=== PATIENT | female | born 1960 | race Caucasian/White ===

== ENCOUNTER 2020-05-04 11:27 | Emergency (ER) | payer OTHER, SELFPAY ==
[2020-05-04 11:40] VITALS: BP 140/68; PULSE 80; RESP 18; TEMP 36.4; O2SAT 96
[2020-05-04 11:50] VITALS: BP 140/68; PULSE 80; RESP 18; TEMP 36.4; O2SAT 96
--- NOTE | 2020-05-04 11:54 | ED.EXTPRO ---
HPI - Extremity Problem General Chief complaint: Extremity Injury, Upper Stated complaint: let arm pain Time Seen by Provider: 05/04/20 11:47 Source: patient and RN notes reviewed Mode of arrival: ambulatory Limitations: no limitations History of Present Illness HPI Narrative: 59-year-old female presents with concern for left shoulder tenderness, pain with range of motion. She denies any injury or trauma. Reports repetitive motion while working at [employer]. Reports pain for several weeks. Denies bruising, swelling. Reports pain and tenderness that started at the shoulder joint, however the shoulder joint is not painful, and radiates long term down the back of the arm. She denies any chest pain, shortness of breath, nausea, back pain, shortness of breath. She reports taking Tylenol. MD Complaint: extremity pain Related Data Home Medications Medication Instructions Recorded Confirmed albuterol sulfate 2 inh INHALATION DAILY 05/04/20 05/04/20 buspirone 10 mg PO DAILY 05/04/20 05/04/20 fluoxetine 10 mg PO DAILY 05/04/20 05/04/20 levothyroxine [Euthyrox] 137 mcg PO DAILY 05/04/20 05/04/20 lorazepam 0.5 mg PO PRN PRN 05/04/20 05/04/20 pantoprazole 40 mg PO DAILY 05/04/20 05/04/20 Allergies Allergy/AdvReac Type Severity Reaction Status Date / Time No Known Allergies Allergy Mild Verified 05/04/20 11:47 Review of Systems Review of Systems: Narrative: CONSTITUTIONAL: Denies malaise, chills, sweats, or fever. CARDIOVASCULAR: Denies chest pain, palpitations, or edema. RESPIRATORY: Denies cough or dyspnea. GASTROINTESTINAL: Denies abdominal pain, nausea, vomiting SKIN: Denies redness, bruising MUSCULOSKELETAL: Reports left shoulder pain, tenderness NEUROLOGIC: Denies numbness, weakness All systems reviewed & are unremarkable except as noted in HPI and below PMFSH Social History Social History Gender identity (if verbalized by the patient): Female Comments At time of signature, agree with nursing past medical, surgical, social and family history. There is no relevant family history pertinent to the presenting complaint Exam Narrative: Exam Narrative: GENERAL: Well-appearing, well-nourished, and in no acute distress. HEAD: Normocephalic, atraumatic. EYES: PERRLA, conjunctivae clear NECK: Supple. CHEST: Speaks in full sentences. No respiratory distress. HEART: Regular rate and rhythm. Normal and equal peripheral pulses. EXTREMITIES: Left shoulder, upper arm has normal strength and sensation, normal range of motion. No edema or ecchymosis. 5/5 strength with shoulder abduction, abduction, flexion and extension. Normal sensation with sensitivity to light touch and pain. Posterior upper arm tenderness, pain reproducible. No open wounds, no skin tenting, no devitalized tissue or atrophy, no trophic changes, no obvious deformity, alignment normal, nearby joints and structures intact. Distal pulses palpable and equal bilaterally, skin warm, dry, pink. Capillary refill less than 3 seconds. SKIN: Warm, dry, no rash. NEURO: Alert and oriented x3. PSYCH: Normal mood and affect Course Course Emergency Course: Patient is aware of diagnosis, understands and agrees to treatment plan. Anticipatory guidance given. Patient agrees to follow-up as directed and is aware of reasons to seek care at the emergency department. Portions of this record may have been created with voice recognition software Vital Signs Vital signs: Vital Signs Temperature 97.5 F L 05/04/20 11:40 Pulse Rate 80 05/04/20 11:40 Respiratory Rate 18 05/04/20 11:40 Blood Pressure 140/68 05/04/20 11:40 Pulse Oximetry 96 05/04/20 11:40 Temperature 97.5 F L 05/04/20 11:50 Pulse Rate 80 05/04/20 11:50 Respiratory Rate 18 05/04/20 11:50 Blood Pressure 140/68 05/04/20 11:50 Pulse Oximetry 96 05/04/20 11:50 Reviewed. MDM - Extremity (Nontraumatic) MDM Narrative Medical decision making narrative: Patients pain is consistent with mus
== END 2020-05-04 12:03 | disposition home or self-care (01) ==
PROVIDERS: Emergency Provider Nurse Practitioner; PCP Physician Assistant
DX: M25.512 Pain in left shoulder (principal); K21.9 Gastro-esophageal reflux disease without esophagitis; E03.9 Hypothyroidism, unspecified; F41.9 Anxiety disorder, unspecified; F32.9 Major depressive disorder, single episode, unspecified
CPT/HCPCS: 99213; G0463

== ENCOUNTER 2024-02-09 17:13 | Emergency (ER) | payer OTHER, SELFPAY ==
--- NOTE | ~2024-02-09 | XR_ITS ---
XR chest 2V Ordering provider: Sedrick Fernandez APRN History: 63 years Female with . difficulty breathing x 1 week smoker . Comparison: None. FINDINGS: MEDIASTINUM: The cardiac silhouette is likely enlarged. Congestive [place]. LUNGS: No infiltrates, effusions or pneumothorax. OTHER: No free air under the diaphragm. IMPRESSION: No acute cardiopulmonary pathology. Slight cardiomegaly with congestive [place]. Reviewed, dictated and finalized at location A.
[2024-02-09 17:21] VITALS: BP 138/80; PULSE 115; RESP 20; TEMP 36.3; O2SAT 95
--- NOTE | 2024-02-09 17:23 | ED.SOB ---
HPI - SOB/Dyspnea General Chief Complaint: Shortness of Breath/Dyspnea Stated Complaint: SOB Time Seen by Provider: 02/09/24 17:25 Source: patient Mode of arrival: ambulatory Limitations: no limitations History of Present Illness HPI Narrative: Candida is a 63-year-old female patient presenting to the clinic today with complaints of shortness of breath over the past week. States that this shortness of breath is gradually getting worse. It is worse to lay flat. She is a current smoker smoking 1 pack per day. No history of asthma or COPD. States that the cough is nonproductive. She denies any fever, chills, body aches. Related Data Home Medications Medication Instructions Recorded Confirmed albuterol sulfate 90 mcg/actuation 2 inh inhalation DAILY 05/04/20 02/09/24 aerosol inhaler buspirone 10 mg tablet 10 mg PO DAILY 05/04/20 02/09/24 fluoxetine 10 mg capsule 10 mg PO DAILY 05/04/20 02/09/24 levothyroxine 137 mcg tablet 137 mcg PO DAILY 05/04/20 02/09/24 (Euthyrox) lorazepam 0.5 mg tablet 0.5 mg PO PRN PRN Anxiety 05/04/20 02/09/24 pantoprazole 40 mg tablet,delayed 40 mg PO DAILY 05/04/20 02/09/24 release Allergies Allergy/AdvReac Type Severity Reaction Status Date / Time No Known Allergies Allergy Mild Verified 02/09/24 17:16 Review of Systems Review of Systems: Pertinent positives per HPI. Patient denies any fever, chills, rash, headache, visual changes, dizziness, runny nose, sore throat, chest pain, palpitations, nausea, vomiting, diarrhea, constipation, abdominal pain, or any urinary issues. [facility] Social History Social History Gender identity (if verbalized by the patient): Female Comments At the time of my signature, I reviewed and agree with the nursing past medical, surgical, social, and family history. There is no relevant family history pertinent to the patient complaint. Exam Narrative: General: Well-developed, obese, in no apparent distress Head: Normocephalic, atraumatic Eyes: Pupils equally round and reactive to light bilaterally, EOM intact, sclera and conjunctive clear, no discharge, lids normal Ears: TMs intact and clear, ear canals clear, no drainage, grossly hearing normal. Nose: Nares patent, no discharge, no inflammation, no sinus tenderness. Mouth: Oropharynx without lesions or masses, good dentition, MMM. Neck: Supple, trachea midline, no enlargement of anterior or posterior cervical nodes, no thyroid masses or goiter palpable. Cardio: Regular rate and rhythm, s1 and s2 normal, no murmur appreciated. Resp: Wheezing and diminished throughout lung [place], no rhonchi, rales,or rubs. Course Course Emergency Course: Portions of this record may have been created with voice recognition software. Level of Care: Express Care Visit Vital Signs Vital signs: Vital Signs Temperature 36.3 C L 02/09/24 17:21 Pulse Rate 115 H 02/09/24 17:21 Respiratory Rate 20 02/09/24 17:21 Blood Pressure 138/80 02/09/24 17:21 Pulse Oximetry 95 02/09/24 17:21 Oxygen Delivery Room Air 02/09/24 17:21 Temperature 36.3 C L 02/09/24 17:21 Pulse Rate 115 H 02/09/24 17:21 Respiratory Rate 20 02/09/24 17:21 Blood Pressure 138/80 02/09/24 17:21 Pulse Oximetry 95 02/09/24 17:21 Oxygen Delivery Room Air 02/09/24 17:21 Vital signs reviewed MDM - SOB/Dyspnea MDM Narrative Medical decision making narrative: At the time of visit patient is resting comfortably on the exam table. Patient appears to be nontoxic. Diagnostics: Chest x-ray was performed and was negative for any sign of pneumonia. Does show some cardiomegaly. Medications: DuoNeb hand-held neb treatment given in the clinic today. Solu-Medrol 125 mg IM Plan: I suspect patient has bronchitis likely COPD. Cough is nonproductive at this time and she denies any fever or chills. Slight Medrol 125 was given in the clinic today as well as a DuoNeb treatment. Will send in prescription for
[2024-02-09] MEDS: IPRATROPIUM 0.5 MG/ALBUTEROL SULFATE 2.5 MG AMPUL.NEB 3 ML INHALATION (17:44)
[2024-02-09] MEDS: methylPREDNISolone SOD SUCC 125 MG VIAL IM (18:07)
== END 2024-02-09 18:22 | disposition home or self-care (01) ==
PROVIDERS: Emergency Provider Nurse Practitioner Family
DX: J40 Bronchitis, not specified as acute or chronic (principal); I51.7 Cardiomegaly; F17.200 Nicotine dependence, unspecified, uncomplicated
CPT/HCPCS: 71046; 96372; 99213; G0463; J2919